=== PATIENT | male | born 1980 | race Caucasian/White ===

== ENCOUNTER 2017-03-04 17:22 | Emergency (ER) | payer OTHER ==
[2017-03-04 17:38] VITALS: BP 118/69; PULSE 73; TEMP 98.3; BMI 25.8
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
[2017-03-04 18:31] LABS: BASOPHIL 2.8 % (0-2.0); EOSINOPHIL 5.5 % (0-4.5); MCH 29.3 pg (25.7-33.7); MCHC 32.9 g/dl (32.0-35.9); MEAN CELL VOLUME 89.1 fl (80-96); MEAN PLT VOLUME 8.1 fl (7.5-11.1); NEUTROPHILS 64.9 % (42.8-82.8); PLATELET COUNT 176 K/MM3 (134-434); RDW 15.2 % (11.9-15.9); WHITE BLOOD COUNT 3.9 K/mm3 (4.0-10.0)
[2017-03-04 18:33] LABS: URINE APPEARANCE CLEAR; URINE BILIRUBIN NEGATIVE (NEGATIVE); URINE BLOOD NEGATIVE (NEGATIVE); URINE COLOR LTYELLOW; URINE GLUCOSE (UA) NEGATIVE (NEGATIVE); URINE KETONE NEGATIVE (NEGATIVE); URINE LEUK ESTERASE NEGATIVE (NEGATIVE); URINE NITRITE NEGATIVE (NEGATIVE); URINE PROTEIN NEGATIVE (NEGATIVE); URINE UROBILINOGEN NEGATIVE E.U./dl (0.2-1.0)
[2017-03-04 19:03] LABS: ALBUMIN 4.2 g/dl (3.4-5.0); BILIRUBIN,TOTAL 0.6 mg/dL (0.2-1.0); CALCIUM 8.9 mg/dL (8.5-10.1); COCKROFT - GAULT 69.21; CREATININE 1.5 mg/dL (0.7-1.3); TOT PROT 6.7 g/dl (6.4-8.2)
== END 2017-03-04 20:44 | disposition home or self-care (01) ==
LOC: JERFT 17:22
DX: R10.31 Right lower quadrant pain (principal); Z94.0 Kidney transplant status; V43.52XA Car driver injured in collision with other type car in traffic accident, initial encounter; Y92.414 Local residential or business street as the place of occurrence of the external cause; Y93.89 Activity, other specified; Y99.8 Other external cause status
CPT/HCPCS: 36415; 76775-TC; 80053; 81003; 85025; 87086; 99281-25